=== PATIENT | male | born 1965 | race Two or more races ===

== ENCOUNTER 2023-03-21 07:45 | Outpatient (CLI) | payer BC ==
[2023-03-21] MEDS ORDERED: Iopamidol 370 76% 100 ML VIAL ONE (08:50)
== END 2023-03-21 07:46 | disposition home or self-care (01) ==
LOC: CSHCT 07:45
PROVIDERS: ATTEND Internal Medicine Cardiovascular Disease
DX: I35.0 Nonrheumatic aortic (valve) stenosis (principal); I77.810 Thoracic aortic ectasia; I51.7 Cardiomegaly; I87.8 Other specified disorders of veins
CPT/HCPCS: 71275; Q9967

== ENCOUNTER 2023-08-13 08:07 | Outpatient (CLI) | payer BC | END 2023-08-13 08:08 | disposition home or self-care (01) | LOC: CSHCT 08:07 | PROVIDERS: ATTEND Internal Medicine Cardiovascular Disease | DX: R06.81 Apnea, not elsewhere classified (principal) | CPT/HCPCS: 70470 ==

== ENCOUNTER 2024-03-24 08:13 | Outpatient (CLI) | payer BC | END 2024-03-24 08:14 | disposition home or self-care (01) | LOC: CSHSLEEP 08:13 | PROVIDERS: ATTEND Internal Medicine Critical Care Medicine | DX: G47.33 Obstructive sleep apnea (adult) (pediatric) (principal) | CPT/HCPCS: 95800 ==